=== PATIENT | female | born 1990 | race Caucasian/White ===

== ENCOUNTER 2017-08-03 13:22 | Emergency (ER) | payer MEDICAID, OTHER ==
[2017-08-03 13:26] VITALS: BMI 35.6
--- NOTE | 2017-08-03 14:42 | RAD ---
PROCEDURE: Bilateral Knee Radiographs. HISTORY: chronic knee pain x 3 months COMPARISON: None. FINDINGS: BONES: Right Knee: No acute fracture. Left Knee: No acute fracture. JOINTS: Right Knee: Unremarkable. Left knee: Unremarkable. SOFT TISSUES: Right Knee: Normal. Left Knee: Normal. JOINT EFFUSION: Right Knee: None. Left Knee: None. OTHER FINDINGS: None. IMPRESSION: No demonstrated fracture or dislocation.
--- NOTE | 2017-08-03 15:16 | C.PDOC ---
History Of Present Illness 26 y/o female presents to the ED complaining of bilateral knee pain for the past 3-4 months. 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 Patient reports she is not allowed to sit throughout shifts. She notes pain is greater on the right vs left, and has worsened over past few days. Otherwise she is ambulatory and denies any changes in sensation. Time Seen by Provider: 08/03/17 13:37 Chief Complaint (Nursing): Lower Extremity Problem/Injury History Per: Patient History/Exam Limitations: no limitations Onset/Duration Of Symptoms: Days Current Symptoms Are (Timing): Still Present Past Medical History Reviewed: Historical Data, Nursing Documentation, Vital Signs Vital Signs: Last Vital Signs Temp 98.4 F 08/03/17 15:25 Pulse 86 08/03/17 15:25 Resp 16 08/03/17 15:25 BP 118/68 08/03/17 15:25 Pulse Ox 100 08/03/17 15:25 - Medical History PMH: No Chronic Diseases Surgical History: No Surg Hx Family History: States: No Known Family Hx - Social History Hx Tobacco Use: No Hx Alcohol Use: No Hx Substance Use: No - Immunization History Hx Tetanus Toxoid Vaccination: No Hx Influenza Vaccination: No Hx Pneumococcal Vaccination: No Review Of Systems Except As Marked, All Systems Reviewed And Found Negative. Musculoskeletal: Positive for: Leg Pain (bilateral knee pain, R > L) Neurological: Negative for: Weakness, Numbness Physical Exam - Physical Exam Appears: No Acute Distress, Other (Overweight) Skin: Normal Color, Warm, Dry Head: Atraumatic, Normacephalic Eye(s): bilateral: Normal Inspection, PERRL, EOMI Oral Mucosa: Moist Neck: Normal ROM Chest: Symmetrical Respiratory: No Accessory Muscle Use Extremity: Tenderness (Diffuse tenderness over knees, R > L), No Deformity, No Swelling (or erythema, warmth) Neurological/Psych: Oriented x3, Normal Speech ED Course And Treatment O2 Sat by Pulse Oximetry: 99 (RA) Pulse Ox Interpretation: Normal - Other Rad XR KNEES X-Ray: Read By Radiologist Interpretation: FINDINGS: BONES: Right Knee: No acute fracture. Left Knee: No acute fracture. JOINTS: Right Knee: Unremarkable. Left knee: Unremarkable. SOFT TISSUES: Right Knee: Normal. Left Knee: Normal. JOINT EFFUSION: Right Knee: None. Left Knee: None. OTHER FINDINGS: None. IMPRESSION: No demonstrated fracture or dislocation. Progress Note: X-ray of knees obtained, and is negative. Patient is stable for d /c home. Provided with work note stating patient requires chair during work hours. Patient advised to follow up at the clinic in 1-2 days for further evaluation Disposition Counseled Patient/Family Regarding: Studies Performed, Diagnosis, Need For Followup, Rx Given - Disposition Referrals: [facility] [Outside] Disposition: HOME/ ROUTINE Disposition Time: 15:14 Condition: STABLE Additional Instructions: Follow up in Clinic within 1-2 days. Return to ED if feel worse. Prescriptions: Ibuprofen [Motrin Tab] 600 mg PO Q8 #30 tab Famotidine [Pepcid] 20 mg PO BID #20 tab Instructions: Chronic Knee Pain (DC) Forms: [employer] ([place]), Work Excuse - POA Present On Arrival: None - Clinical Impression Clinical Impression: Knee pain, bilateral - PA / REMELTER / Resident Statement MD/DO has reviewed & agrees with the documentation as recorded. - Scribe Statement The provider has reviewed the documentation as recorded by the Scribe (Juanis Colindres) All medical record entries made by the Scribe were at my direction and personally dictated by me. I have reviewed the chart and agree that the record accurately reflects my personal performance of the history, physical exam, medical decision making, and the department course for this patient. I have also personally directed, reviewed, and agree with the discharge instructions and disposition.
[2017-08-03 15:26] VITALS: BP 118/68; PULSE 86; RESP 16; TEMP 98.4
[2017-08-03 17:41] VITALS: O2SAT 99
== END 2017-08-03 15:27 | disposition home or self-care (01) ==
LOC: C.ER 13:22
DX: M25.562 Pain in left knee (principal); M25.561 Pain in right knee